=== PATIENT | male | born 2000 | race African-American/Black ===

== ENCOUNTER 2018-09-20 14:32 | Emergency (ER) | payer OTHER ==
[2018-09-20 14:36] VITALS: BP 0/0
== END 2018-09-20 14:36 | disposition expired | DRG 298 ==
LOC: ED 14:32
PROC: 5A12012 Performance of Cardiac Output, Single, Manual (ICD-10-PCS; principal; 2018-09-20)
DX: I46.9 Cardiac arrest, cause unspecified (principal)